=== PATIENT | male | born 1960 | race Caucasian/White ===

== ENCOUNTER 2016-10-08 09:14 | Emergency (ER) | payer BC ==
[2016-10-08 10:57] VITALS: BP 123/77
--- NOTE | 2016-10-08 11:26 | UC ---
Respiratory Complaint HPI - HPI Summary HPI Summary: About 3 weeks ago developed ear stuffiness and sharp pain in R ear. "I knew it was an ear infection, so I took a full course of amoxicillin that I hadn't taken in the past." Took 10 days, thinks it may have been 875mg. About 3-4 days after starting amox ear felt improved but developed cough. Has been coughing ever since; was quite sick with cough and fatigue about 2 weeks ago, and has only recently been able to be up and walking around. Today and yesterday has nasal congestion, had temp of 100.4 this morning. Cough is very deep and very painful, royal on L side of chest. States pain is worse with palpation, cough, & movement, and feels like previous muscle strains. - History of Current Complaint Chief Complaint: UCRespiratory Stated Complaint: HEAD/CHEST CONGESTION Time Seen by Provider: 10/08/16 11:00 Hx Obtained From: Patient Onset/Duration: Gradual Onset, Lasting Weeks Timing: Constant Severity Initially: Moderate Severity Currently: Mild Character: Cough: Productive Aggravating Factors: Deep Breaths, Recumbent Position Alleviating Factors: Upright Position Associated Signs And Symptoms: Positive: Fever, URI, Nasal Congestion - Allergies/Home Medications Allergies/Adverse Reactions: Allergies Allergy/AdvReac Type Severity Reaction Status Date / Time Penicillins Allergy Unknown Verified 10/08/16 10:58 Reaction Details PMH/Surg Hx/FS Hx/Imm Hx Previously Healthy: Yes - Surgical History Surgical History: None - Family History Known Family History: Positive: None Negative: Cardiac Disease - father of cadiac aneurysm - Social History Alcohol Use: Daily Alcohol Amount: glass of wine per day Substance Use Type: None Smoking Status (MU): Never Smoked Tobacco Review of Systems Constitutional: Fever Skin: Negative Eyes: Negative ENT: Nasal Discharge Respiratory: Cough Cardiovascular: Negative Gastrointestinal: Negative Genitourinary: Negative Motor: Negative Neurovascular: Negative Musculoskeletal: Negative Neurological: Negative Psychological: Negative All Other Systems Reviewed And Are Negative: Yes Physical Exam Triage Information Reviewed: Yes Appearance: Pain Distress - with cough and movement Vital Signs: Initial Vital Signs Temp 98.6 F 10/08/16 10:53 Pulse 88 10/08/16 10:53 Resp 18 10/08/16 10:53 BP 123/77 10/08/16 10:53 Pulse Ox 96 10/08/16 10:53 Vital Signs Reviewed: Yes Eye Exam: Normal Eyes: Positive: Conjunctiva Clear ENT: Positive: Hearing grossly normal, Pharynx normal, Nasal congestion, TMs normal - L TM, TM red - R, retracted. Negative: TM bulging Dental Exam: Normal Neck exam: Normal Neck: Positive: Supple, Nontender, No Lymphadenopathy Respiratory: Positive: Normal breath sounds, No respiratory distress, No accessory muscle use Cardiovascular Exam: Normal Cardiovascular: Positive: RRR, No Murmur Musculoskeletal Exam: Normal Neurological Exam: Normal Psychological Exam: Normal Skin Exam: Normal Diagnostic Evaluation - Laboratory O2 Sat by Pulse Oximetry: 96 Respiratory Course/Dx - Differential Dx/Diagnosis Provider Diagnoses: bronchitis. pneumonia, suspect mycoplasma Discharge - Discharge Plan Condition: Stable Disposition: HOME Prescriptions: Albuterol HFA INHALER* [Ventolin HFA Inhaler*] 1 - 2 puff INH Q4H PRN #1 mdi PRN Reason: wheeze, cough Azithromycin TAB* [Zithromax TAB*] 250 mg PO SEE INSTRUCTIONS #6 tab Guaifenesin-Codeine [Guaiatussin AC] 5 - 10 ml PO Q6H #120 ml MDD 40mL Patient Education Materials: Pneumonia (ED) Referrals: Marcos Ortega MD [Primary Care Provider] - 1 Week Additional Instructions: As we discussed, I suspect a mycoplasma pneumonia has developed on top of a respiratory virus. You may not have rapid improvement, but I do not expect you to have much worsening from here. If you have fever above 100.5 after tomorrow, or if you have any sudden worsening, please see your primary care provider or return here for a recheck. If possible, it would be prudent to see your primary care provider on Saturday or Saturday for a routine re-evaluation.
== END 2016-10-08 11:43 | disposition home or self-care (01) ==
LOC: UCEAST 09:14
DX: J40 Bronchitis, not specified as acute or chronic (principal); J18.9 Pneumonia, unspecified organism
CPT/HCPCS: 99212; G0463